=== PATIENT | female | born 1945 | race African-American/Black ===

== ENCOUNTER 2018-08-29 18:44 | Inpatient (IN) | payer MEDICAID, OTHER ==
[~2018-08-29] VITALS: Ht 167.6 cm; Wt 76.2 kg
[2018-08-29] MEDS ORDERED: ACETAMINOPHEN 325MG TABLET PO STA (21:14)
[2018-08-29 22:05] LABS: BASOPHILS % 1.1 % (0.0-2.0); EOSINOPHILS % 1.9 % (0.0-5.0); HEMATOCRIT. 41.1 % (36.0-48.0); HEMOGLOBIN. 13.6 g/dL (12.0-16.0); LYMPHOCYTES % 19.3 % (20.0-50.0); MEAN CORPUSCULAR HEMOGLOBIN 28.7 pg (28.0-32.0); MEAN CORPUSCULAR VOLUME 86.6 fL (81.0-99.0); MEAN PLATELET VOLUME 8.8 fl (7.4-10.4); MONOCYTES % 11.4 % (2.0-8.0); NEUTROPHILS % 66.3 % (40.0-76.0); PLATELET 214 x1000/uL (130-400); RED BLOOD CELL COUNT 4.74 mill/uL (4.2-5.4); RED CELL DISTRIBUTION WIDTH 13.8 % (11.6-14.6)
[2018-08-29 22:07] LABS: CHLORIDE 105 mEq/L (98-107)
[2018-08-30] VITALS (7 sets, daily range): BP systolic 118–176; BP diastolic 53–88
[2018-08-30] MEDS ORDERED: AMLODIPINE 5MG TABLET PO SCH (05:32)
[2018-08-30] MEDS ORDERED: DIPHENHYDRAMINE 50MG/ML VIAL IV PRN (08:15)
[2018-08-30] MEDS ORDERED: MAGNESIUM/ALUMINUM HYDROXIDE/SIMETHICONE 30ML UDC PO PRN (08:15)
[2018-08-30] MEDS ORDERED: IPRATROPIUM/ALBUTEROL 0.5-3(2.5)MG/3ML NEB INH PRN (08:15)
[2018-08-30] MEDS ORDERED: HYDROCODONE/ACETAMINOPHEN 5/325MG TABLET PO PRN (08:15)
[2018-08-30] MEDS ORDERED: CLONIDINE 0.1MG TABLET PO PRN (08:15)
[2018-08-30] MEDS ORDERED: ONDANSETRON HCL 4MG/2ML INJ IV PRN (08:15)
[2018-08-30] MEDS ORDERED: ACETAMINOPHEN 650MG/20.3ML UDC GT PRN (08:15)
[2018-08-30] MEDS ORDERED: GUAIFENESIN 200MG/10ML SUGAR FREE UDC PO PRN (08:15)
[2018-08-30] MEDS ORDERED: ACETAMINOPHEN 650MG SUPP PR PRN (08:15)
[2018-08-30] MEDS ORDERED: ACETAMINOPHEN 325MG TABLET PO PRN (08:15)
[2018-08-30] MEDS ORDERED: ENOXAPARIN 40MG/0.4ML SYR SUBCUT SCH (09:00)
[2018-08-30] MEDS ORDERED: DOCUSATE SODIUM 100MG CAPSULE PO PRN (09:00)
[2018-08-30] MEDS ORDERED: NA PHOS,M-B/NA PHOS,DI-BA ENEMA 118ML PR PRN (09:00)
[2018-08-30 12:19] LABS: T4 FREE 1.13 ng/dL (0.76-1.46)
[2018-08-30] MEDS ORDERED: SODIUM CHLORIDE 0.9% INJ 3ML FLUSH IVF SCH (14:00)
[2018-08-30] MEDS ORDERED: CARVEDILOL 3.125 MG TABLET PO NR (14:45)
[2018-08-30 14:53] LABS: CLARITY URINE CLEAR (CLEAR); COLOR URINE YELLOW (YELLOW); KETONES URINE NEGATIVE (NEGATIVE); LEUKOCYTE ESTERASE URINE NEGATIVE (NEGATIVE); NITRITE URINE NEGATIVE (NEGATIVE); OCCULT BLOOD URINE NEGATIVE (NEGATIVE); PROTEIN URINE NEGATIVE (NEGATIVE); SPECIFIC GRAVITY URINE 1.011 (1.005-1.030)
[2018-08-30 15:14] LABS: *AMPHETAMINES SCREEN URINE NEGATIVE (NEGATIVE); *BARBITURATES SCREEN URINE NEGATIVE (NEGATIVE); *COCAINE SCREEN URINE NEGATIVE (NEGATIVE)
[2018-08-30 15:15] LABS: *BENZODIAZEPINES SCREEN URINE NEGATIVE (NEGATIVE); CANNABINOID URINE SCREEN NEGATIVE (NEGATIVE); METHADONE URINE SCREEN NEGATIVE (NEGATIVE); OPIATES URINE SCREEN NEGATIVE (NEGATIVE); PHENCYCLIDINE URINE SCREEN NEGATIVE (NEGATIVE)
[2018-08-30] MEDS ORDERED: CARVEDILOL 3.125 MG TABLET PO SCH (21:00)
== END 2018-08-30 18:18 | disposition home or self-care (01) | DRG 74 ==
LOC: ER 18:44 → 6WST 22:44 → EDBEDREQTM 22:47 → EDBEDREQ 22:47 → ENRESERV 23:52
PROVIDERS: ADMIT Family Medicine; ATTEND Family Medicine
DX: G90.8 Other disorders of autonomic nervous system (principal); D72.819 Decreased white blood cell count, unspecified; I10 Essential (primary) hypertension; W07.XXXA Fall from chair, initial encounter; R73.9 Hyperglycemia, unspecified; E66.9 Obesity, unspecified; W19.XXXA Unspecified fall, initial encounter; Y93.89 Activity, other specified; Z68.27 Body mass index [BMI] 27.0-27.9, adult; Y92.89 Other specified places as the place of occurrence of the external cause; Y99.8 Other external cause status
CPT/HCPCS: 36415; 71045; 78582; 80061; 80305; 83036; 83605; 83880; 84439; 84443; 84484; 85379; 93005; 93970; 99285; A9558; J1650